=== PATIENT | male | born 1950 | race Caucasian/White ===

== ENCOUNTER → 2017-01-03 | Outpatient (CLI) | payer BC ==
[2017-01-03 13:20] LABS: BLOOD UREA NITROGEN 14 mg/dl (7-18); BUN/CREATININE RATIO 13.9 (10-20); CARBON DIOXIDE 28 mmol/L (21-32); CHLORIDE 107 mmol/L (98-107); GLUCOSE 90 mg/dl (70-99); SODIUM 143 mmol/L (136-145)
[2017-01-03 13:23] LABS: CHOLESTEROL 172 mg/dl (0-200); CHOLESTEROL/HDL RATIO 2.6; HDL CHOLESTEROL 67 mg/dl; LDL CHOLESTEROL CALCULATED 94 mg/dl; TRIGLYCERIDES 57 mg/dl (0-150); VERY LOW DENSITY LIPOPROT CALC 11 mg/dl
== END | disposition home or self-care (01) ==
LOC: C.LABPVFM 09:58
PROVIDERS: ATTEND Nurse Practitioner
DX: E78.5 Hyperlipidemia, unspecified (principal); R74.8 Abnormal levels of other serum enzymes

== ENCOUNTER → 2017-01-26 | Outpatient (CLI) | payer OTHER | END | disposition home or self-care (01) | LOC: C.LABPVFM 09:05 | PROVIDERS: ATTEND Nurse Practitioner | DX: Z11.59 Encounter for screening for other viral diseases (principal) ==

== ENCOUNTER → 2017-06-11 | Outpatient (CLI) | payer OTHER | END | disposition home or self-care (01) | LOC: C.LABPVFM 09:16 | PROVIDERS: ATTEND Urology | DX: R97.20 Elevated prostate specific antigen [PSA] (principal); N41.1 Chronic prostatitis ==

== ENCOUNTER → 2017-08-05 | Outpatient (CLI) | payer OTHER ==
[2017-08-05 12:41] LABS: BLOOD UREA NITROGEN 17 mg/dl (7-18); BUN/CREATININE RATIO 17.1 (10-20)
== END | disposition home or self-care (01) ==
LOC: C.LABPVFM 08:29
PROVIDERS: ATTEND Urology
DX: R97.20 Elevated prostate specific antigen [PSA] (principal)

== ENCOUNTER → 2017-08-12 | Outpatient (CLI) | payer OTHER ==
[~2017-08-12] MED LIST: GADAVIST IV PRN
--- NOTE | 2017-08-13 08:00 | DIAGNOSTIC IMAGING REPORT ---
PROSTATE MRI COMBO CLINICAL HISTORY: 67 year-old Male presenting with ELEVATED PSA. PSA 7.140 ng/mL. TECHNIQUE: Multisequence, multiplanar MR imaging of the prostate was performed before and after the intravenous administration of 7 cc of Gadavist. Additional postprocessing was performed on a separate Regal[employer] workstation by the radiologist for 3-D volumetric segmentation of the prostate and contouring of region(s) of interest (KAYLEEN) for targeting. COMPARISON: None. FINDINGS: Prostate: The prostate measures 5.5 x 5.5 x 5 cm (DynaCAD prostate boundary segmentation volume 73.07 mL). Marked benign prostatic hypertrophy is noted with numerous circumscribed central gland nodules which likely reflect BPH nodules. Precontrast T1 weighted imaging demonstrates no significant abnormality. Seminal vesicles normal. Suspicious lesion(s) described below: Lesion (DynaCAD KAYLEEN) 1: Note is made of a 1.3 x 0.5 x 0.9 cm wedge-shaped T2 hypointense focus within the right lateral mid and apical portion of the peripheral zone. This demonstrates progressive enhancement and demonstrates subtle hypointensity on the ADC map. No additional sites of decreased T2 signal are noted within the peripheral zone. There is no evidence for extracapsular extension. Bladder: Normal. Bowel: Visualized portion of the rectum normal. Peritoneum: No free fluid in the pelvis. Lymph nodes: No lymphadenopathy in the visualized portion of the pelvis. Vasculature: Iliac vessels patent. Osseous structures: Normal bone marrow signal intensity. IMPRESSION: 1. 1.3 x 0.5 x 0.9 cm wedge-shaped T2 hypointense focus within the right lateral mid and apical portion of the peripheral zone with progressive enhancement and subtle hypointensity on the ADC map. This is intermediate suspicion. The presence of clinically significant cancer is equivocal. This lesion has been segmented for targeted biopsy. 2. Markedly enlarged prostate with benign prostatic hyperplasia. Electronically signed by: Mendez Martin M.D. 08/13/2017 7:59 AM Dictated Date/Time: 08/12/2017 1:58 PM
== END | disposition home or self-care (01) ==
LOC: C.MRIBC 10:59
PROVIDERS: ATTEND Urology
DX: R97.20 Elevated prostate specific antigen [PSA] (principal); N42.9 Disorder of prostate, unspecified; N40.0 Benign prostatic hyperplasia without lower urinary tract symptoms

== ENCOUNTER → 2017-10-22 | Outpatient (CLI) | payer OTHER | END | disposition home or self-care (01) | LOC: C.PATHSPEC 17:34 | PROVIDERS: ATTEND Urology | DX: R97.20 Elevated prostate specific antigen [PSA] (principal) ==

== ENCOUNTER 2025-01-06 13:23 | Inpatient (IN) ==
--- NOTE | 2025-01-06 14:28 | XRay Report ---
XR chest 1V portable CLINICAL HISTORY: Dyspnea COMPARISON STUDY: 01/03/2025 FINDINGS: Heart size and pulmonary vasculature are normal. There are interval stranding opacities in the lung bases. There is an interval small area of patchy opacity right midlung. No pleural effusion or pneumothorax. IMPRESSION: Bilateral pneumonia. ACT 112: Negative or not required by law. Electronically signed by: Niranjan Ortega M.D. 01/06/2025 2:27 PM
[2025-01-06 14:36] LABS: Hematocrit (blood only) 37.6 % (42.0-52.0); Mean Corpuscular Hgb Conc 34.6 g/dL (32.0-36.0); Mean Corpuscular Volume 89.7 fL (80.0-100.0); Mean Platelet Volume 9.3 fL (9.4-12.4); Platelet Count 233 K/uL (130-400); RDW Coefficient of Variation 14.7 % (11.5-14.5); RDW Standard Deviation 48.3 fL (36.4-46.3); Red Blood Count 4.19 M/uL (4.70-6.10); White Blood Count 4.86 K/ul (4.8-10.8)
[2025-01-06] MEDS: methylPREDNISolone 125 MG/2 ML VIAL IV STA (14:36)
[2025-01-06] MEDS: ALBUT/IPRATROP 3MG/0.5MG NEB 3 ML VIAL NEB STA (14:36)
[2025-01-06] MEDS ORDERED: VANCOMYCIN CONSULT ACTIVE PRN (14:45)
[2025-01-06 14:46] LABS: Albumin Globulin Ratio 0.8 (0.9-2); Albumin Level 3.6 gm/dl (3.4-5.0); BUN Creatinine Ratio 20.4 (10-20); Bilirubin,Total 1.1 mg/dl (0.2-1.0); Calcium 9.7 mg/dl (8.6-10.3); Creatinine Clr Calc Pharmacy 63.7 ml/min; Globulin 4.3 gm/dl (2.5-4.0); Magnesium 2.1 mg/dl (1.7-2.4); Potassium 3.4 mmol/L (3.5-5.1); Total Protein 7.9 gm/dl (6.0-8.3)
[2025-01-06 14:59] LABS: Basophils # (auto) 0.06 K/uL (0.00-0.20); Basophils % (auto) 1.2 %; Eosinophils # (auto) 0.06 K/uL (0.00-0.50); Eosinophils % (auto) 1.2 %; Immature Granulocytes # (auto) 0.06 K/uL (0.01-0.20); Immature Granulocytes % (auto) 1.2 %; Lymphocytes # (auto) 0.95 K/uL (1.20-3.40); Lymphocytes % (auto) 19.5 %; Monocytes # (auto) 0.66 K/uL (0.11-0.59); Monocytes % (auto) 13.6 %; Neutrophils # (auto) 3.07 K/uL (1.40-6.50); Neutrophils % (auto) 63.3 %
--- NOTE | 2025-01-06 15:20 | Emergency Department Note ---
Impression & Plan Bilateral pneumonia, Influenza A ED Provider Note NAME: ATTILA FRAGA AGE: 74 SEX: Male INFORMANT: Patient ED PROVIDER(S): Noe Herrera MD CHIEF COMPLAINT: Shortness of breath and cough PLAN: Disposition: Admitted Outpatient prescription management: none Referral: None MEDICAL DECISION MAKING: Patient presented because of shortness of breath and cough. Had worsening flu symptoms and hypoxia. Patient had x-ray performed and had bilateral pneumonia. CBC and chemistry panels were unremarkable. Cardiac troponin negative. Due to his medical history and hypoxia CT imaging of the chest was ordered. Discussed antibiotic choices with ED pharmacist. Patient was treated with vancomycin, doxycycline, and Zosyn. Patient notes using amoxicillin and doxycycline as an outpatient without any problems. Patient underwent CT imaging. Pneumonia noted but no PE. Patient will need further evaluation and management in the hospital. I refer you to the EMR for further details. Consultation was made with Dr. Hernandez Graf of the [facility] service. Patient was evaluated in the ER for further management. Care/management discussed with: biostatistics manager, ED pharmacist Level of care consideration(s): After review of the information above and other included data, I feel the patient requires escalation of care to admission Triage Nursing notes: reviewed and agree them. Vital Signs: reviewed and remarkable for hypoxia Additional History obtained from: Family Chronic Medical/Social Conditions affecting care: Multiple myeloma Prior/ Outside/ External records reviewed: none Differential Diagnosis: Reactive airway disease, pneumonia, pneumothorax, COPD, CHF, infections, cardiac ischemia, pulmonary embolism, musculoskeletal, gastrointestinal, as well as other pathologies. Diagnostics, independently interpreted by me: ECG: Twelve-lead ECG reveals normal sinus rhythm at [address] elevation or depression. No PACs or PVCs. RSR prime pattern noted in V2. Cardiac Monitoring: Cardiac monitoring ordered by me: The patient was placed on continuous cardiac monitoring and observed. It revealed a normal sinus rhythm at 85 beats per minute without ectopy or evidence of dysrhythmia. Medical decision rules: none Imaging studies: Chest x-ray reveals bilateral pneumonia CT scan of the chest is negative for pulmonary emboli. Bilateral pneumonia noted. HPI: 74 year old Male arrives for evaluation of shortness of breath and cough. Patient notes about 1 week of symptoms. 3 days ago he was in Emergency Department and diagnosed with influenza A. He also notes fever and congestion. Patient was monitoring his blood oxygen level at home and was found to have saturations in the low 80s. He was seen by the primary clinic and referred to the ER due to hypoxia. Patient does have a history multiple myeloma and renal cancer. Pt denies LOC, headache, chills, diaphoresis, visual changes, neck pain, chest pain, nausea, vomiting, abdominal pain, back pain, melena, hematochezia, urinary symptoms, numbness, weakness, lymphadenopathy, rash, or other complaints.. PAST MEDICAL HISTORY: See Below, multiple myeloma PAST SURGICAL HISTORY: See Below, SOCIAL HISTORY: See Below, HOME MEDICATIONS: See Below ALLERGIES: See Below VITALS: See Below PHYSICAL EXAMINATION: GENERAL: Awake, alert, mildly ill-appearing, in no distress HENT: Normocephalic, atraumatic. Oropharynx unremarkable. EYES: Normal conjunctiva. Sclera non-icteric. NECK: Inspection normal. Non-tender. Supple. No nuchal rigidity. FROM. No masses. RESPIRATORY: Coarse rhonchi bilaterally. Worse on the right. No wheezes. No rales. Normal respiratory effort. CARDIAC: Normal rate. Normal rhythm. No murmurs. No rubs. Extremities warm and well perfused. Pulses equal. No JVD. GI: Soft, non-distended. No tenderness to palpation. No rebound or guarding. No masses. RECTAL: Deferred. MUSCULOSKELETAL: Atraumatic. Chest examination reveals no tenderness. The back is symmetrical on inspection without obvious abnormality. There is no CVA tenderness to palpation. No joint edema. LOWER EXTREMITIES: Calves are equal size bilaterally and non-tender. No edema. No discoloration. NEURO: Normal sensorium. No sensory or motor deficits noted. SKIN: No rash or jaundice noted. 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 followed by [facility], transplant 2020 Screening for diabetes mellitus Chronic prostatitis Abnormal gait (Acute) BPH with obstruction/lower urinary tract symptoms (Acute) Elevated PSA (Acute) Multiple thyroid nodules (Chronic) benign, stable Medical History Abnormal pathology report from prostate needle biopsy History of paranasal sinus congestion History of Lyme disease History of headache History of bronchitis Dyslipidemia Elevated liver enzymes History of cellulitis History of upper respiratory infection Surgical History History of vasectomy History of inguinal hernia repair Family History Father Stroke Brother Throat cancer Mother Pancreatic cancer Denies family history of Ovarian cancer Prostate cancer Myocardial infarction Breast cancer Colorectal cancer Social History (Updated 01/06/25 @ 11:37 by Sharla Chapman LPN) Smoking Status: Never smoker Second Hand Exposure: No; Do You Dip or Chew Tobacco: No; Hx Alcohol Use: Yes Alcohol type: beer and wine Alcohol Intake Frequency: 2-3 x/Week Hx Substance Use: No Preferred Language: Sammarinese Communication Ability: Effective Visual Impairment: Limited Hearing Ability: Normal Elementary Classroom Teacher Required: No Beliefs That Will Affect Care: Yarsanism marital status: Current Living Situation: Spouse current occupational status: retired How many Children do You have: 2 Feels Safe at Home: Yes Safety Concerns: Feels Safe At This Time Childhood Exposure to Second-Hand Smoke: Yes Diet: regular caffeine: Yes during the past year weight has: remained stable Dental Care, Regularly: Yes Physical Activity Frequency: 3-4 Times per Week Seatbelt Use: always Sunscreen Use: Yes Assistive Devices: Glasses Allergies Allergies Allergy/AdvReac Type Severity Reaction Status Date / Time No Known Allergies Allergy Unverified 01/06/25 20:37 Home Meds Home Medications Medication Instructions Recorded Confirmed cod liver oil 1 ea PO DAILY 08/25/19 01/06/25 cholecalciferol (vitamin D3) 50 50 mcg PO DAILY 09/25/22 01/06/25 mcg (2,000 unit) capsule aspirin 81 mg tablet,delayed 81 mg PO DAILY 10/11/24 01/06/25 release lenalidomide 10 mg capsule 10 mg PO DAILY 10/11/24 01/06/25 magnesium mal-pot cit-taur-B6 27 mg PO DAILY 01/03/25 01/06/25 mnrfjkytlnau-hvm-bbyit acid-vit 1 tab PO DAILY 01/03/25 01/06/25 K-lycop 400 mcg-20 mcg-370 mcg tablet (Men's 50 Plus Daily Formula) vitamin B12 0.5 mg-folic acid 1 mg 1 tab PO DAILY 01/03/25 01/06/25 tablet vitamin K2 40 mcg tablet 0 mcg PO DAILY 01/03/25 01/06/25 Previous Rx's Medication Instructions Recorded alfuzosin 10 mg tablet,extended 10 mg PO DAILY #90 tabs 02/22/24 release 24 hr dutasteride 0.5 mg capsule 0.5 mg PO DAILY #90 caps 04/07/24 hydrocortisone 2.5 % topical cream 1 applic ND DAILY PRN hemorrhoids 10/11/24 with perineal applicator #30 grams (Proctosol HC) Results & Data (ED) Vital Signs Vital Signs - 24 hr 01/06/25 13:41 01/06/25 14:39 01/06/25 14:41 Temperature 36.9 C Temperature Source Temporal Artery Scan Pulse Rate 84 85 Pulse Rate from SpO2 Sensor 84 Respiratory Rate 20 13 Blood Pressure 144/84 H Blood Pressure Mean 104 Pulse Oximetry 89 L 97 Oxygen Delivery Method Room Air Oxygen Flow Rate Sepsis Recent Fever Within 48 Hours Yes Sepsis New/Unexplained Change in Mental Status No Sepsis Action Taken by Nursing No Action Required 01/06/25 14:54 01/06/25 14:57 01/06/25 15:03 Temperature Temperature Source Pulse Rate 98 H 103 H Pulse Rate from SpO2 Sensor 98 H 105 H Respiratory Rate 30 H 20 Blood Pressure 150/87 H Blood Pressure Mean 117 Pulse Oximetry 93 93 Oxygen Delivery Method Nasal Cannula Nasal Cannula Oxygen Flow Rate 2 2 Sepsis Recent Fever Within 48 Hours Sepsis New/Unexplained Change in Mental Status Sepsis Action Taken by Nursing 01/06/25 15:30 01/06/25 16:03 01/06/25 16:45 Temperature Temperature Source Pulse Rate 98 H 94 H 89 Pulse Rate from SpO2 Sensor 98 H 93 H 88 Respiratory Rate 21 29 H Blood Pressure Blood Pressure Mean Pulse Oximetry 91 90 91 Oxygen Delivery Method Oxygen Flow Rate Sepsis Recent Fever Within 48 Hours Sepsis New/Unexplained Change in Mental Status Sepsis Action Taken by Nursing Laboratory Data 01/06/25 14:09 01/06/25 14:09 Lab Results 01/06/25 01/06/25 01/06/25 Range/Units 14:09 14:38 16:02 WBC 4.86 (4.8-10.8) K/ul RBC 4.19 L (4.70-6.10) M/uL Hgb 13.0 L (14.0-18.0) g/dl Hct 37.6 L (42.0-52.0) % MCV 89.7 (80.0-100.0) fL MCH 31.0 (25.0-34.0) pg MCHC 34.6 (32.0-36.0) g/dL RDW Std Deviation 48.3 H (36.4-46.3) fL RDW Coeff of Meri 14.7 H (11.5-14.5) % Plt Count 233 (130-400) K/uL MPV 9.3 L (9.4-12.4) fL Immature Gran % (Auto) 1.2 % Neut % (Auto) 63.3 % Lymph % (Auto) 19.5 % [place] % (Auto) 13.6 % Eos % (Auto) 1.2 % Baso % (Auto) 1.2 % Neut # (Auto) 3.07 (1.40-6.50) K/uL Lymph # (Auto) 0.95 L (1.20-3.40) K/uL [place] # (Auto) 0.66 H (0.11-0.59) K/uL Eos # (Auto) 0.06 (0.00-0.50) K/uL Baso # (Auto) 0.06 (0.00-0.20) K/uL Immature Gran # (Auto) 0.06 (0.01-0.20) K/uL Sodium 136 (136-145) mmol/L Potassium 3.4 L (3.5-5.1) mmol/L Chloride 100 (98-107) mmol/L Carbon Dioxide 27 (21-32) mmol/L Anion Gap 9 (3-11) BUN 20 (6-23) mg/dl Creatinine 0.98 (0.6-1.4) mg/dl Est Cr Clr Drug Dosing 63.7 ml/min eGFR 81.93 BUN/Creatinine Ratio 20.4 H (10-20) Glucose 109 H (70-99(Fasting)) mg/dl Calcium 9.7 (8.6-10.3) mg/dl Magnesium 2.1 (1.7-2.4) mg/dl Total Bilirubin 1.1 H (0.2-1.0) mg/dl AST 59 H (13-39) U/L ALT 63 H (7-52) U/L Alkaline Phosphatase 85 (34-104) U/L Troponin I High Sens 9.0 (0-20) pg/ml B-Natriuretic Peptide 44 (0-100) pg/ml Total Protein 7.9 (6.0-8.3) gm/dl Albumin 3.6 (3.4-5.0) gm/dl Globulin 4.3 H (2.5-4.0) gm/dl Albumin/Globulin Ratio 0.8 L (0.9-2) Nasal Screen MRSA (PCR) Negative (Negative) Administered Medications Guaifenesin (Guaifenesin 600 Mg Tabcr) 600 mg PO Q12 [facility] Stop: 02/05/25 20:59 Last Admin: 01/06/25 21:19 Dose: 600 mg Documented By: JOSE DAVID Heparin Sodium (Porcine) (Heparin Sod 5,000 Unit/0.5 Ml Vial) 5,000 units SQ Q12 DB Stop: 02/05/25 20:59 Last Admin: 01/06/25 21:19 Dose: 5,000 units Documented By: JOSE DAVID Sodium Chloride (Nss) 1,000 mls @ 125 mls/hr IV .Q8H [facility] Stop: 01/07/25 08:29 Last Admin: 01/06/25 16:32 Dose: 125 mls/hr Documented By: NYDIA Miscellaneous Information (Patient's Allergy Info Needs Entered) 1 each N/A Q30M DB Stop: 02/05/25 18:29 Last Admin: 01/06/25 21:14 Dose: 1 each Documented By: JOSE DAVID Discontinued Medications Albuterol (Albut/Ipratrop 3mg/0.5mg Neb 3 Ml Vial) 3 ml NEB NOW STA; Protocol Stop: 01/06/25 14:27 Last Admin: 01/06/25 14:36 Dose: 3 ml Documented By: JAK Vancomycin HCl 1,250 mg/ (Sodium Chloride) 525 mls @ 200 mls/hr IV NOW ONE Stop: 01/06/25 17:22 Last Infusion: 01/06/25 18:35 Dose: Infused Documented By: JOSE DAVID Admin: 02/28/25 15:57 Dose: 200 mls/hr Documented By: JAK Piperacillin Sod/Tazobactam Sod (Zosyn) 4.5 gm in 100 mls @ 200 mls/hr IV NOW ONE Stop: 01/06/25 15:29 Last Infusion: 01/06/25 16:29 Dose: Infused Documented By: Admin: 01/06/25 15:57 Dose: 200 mls/hr Documented By: JAK Doxycycline Hyclate 100 mg/ (Dextrose) 100 mls @ 50 mls/hr IV NOW ONE Stop: 01/06/25 16:59 Last Infusion: 01/06/25 18:35 Dose: Infused Documented By: Admin: 01/06/25 16:32 Dose: 50 mls/hr Documented By: NYDIA Ioversol (Optiray 320 125ml) 118 ml IV ONCE ONE Stop: 01/06/25 15:49 Last Admin: 01/06/25 15:50 Dose: 118 ml Documented By: SHELLY Methylprednisolone (Methylprednisolone 125 Mg/2 Ml Vial) 125 mg IV NOW STA Stop: 01/06/25 14:27 Last Admin: 01/06/25 14:36 Dose: 125 mg Documented By: JAK Oseltamivir Phosphate (Oseltamivir Phosphate 75 Mg Cap) 75 mg PO NOW STA Stop: 01/06/25 17:08 Last Admin: 01/06/25 17:48 Dose: 75 mg Documented By: NYDIA Potassium Chloride (Potassium Chloride Crtab 20 Meq Tabcr) 20 meq PO NOW STA Stop: 01/06/25 17:01 Last Admin: 01/06/25 17:48 Dose: 20 meq Documented By: NYDIA Imaging Data Radiologist's Impression: Chest X-Ray 01/06/25 13:46 XR chest 1V portable CLINICAL HISTORY: Dyspnea COMPARISON STUDY: 01/03/2025 FINDINGS: Heart size and pulmonary vasculature are normal. There are interval stranding opacities in the lung bases. There is an interval small area of patchy opacity right midlung. No pleural effusion or pneumothorax. IMPRESSION: Bilateral pneumonia. ACT 112: Negative or not required by law. Electronically signed by: Niranjan Ortega M.D. 01/06/2025 2:27 PM Chest CTA 01/06/25 14:55 EXAM: CT Angiography Chest With Intravenous Contrast INDICATION: Hypoxia. Influenza. TECHNIQUE: Axial computed tomographic angiography images of the chest with intravenous contrast. Sagittal and coronal reformatted images were created and reviewed. This CT exam was performed using one or more of the following dose reduction techniques: automated exposure control, adjustment of the mA and/or kV according to patient size, and/or use of iterative reconstruction technique. MIP reconstructed images were created and reviewed. CONTRAST: 118 ml of Optiray 320 was administered intravenously. COMPARISON: No relevant prior studies available. FINDINGS: Pulmonary arteries: Motion artifact limiting assessment of the lower lobe pulmonary arterial branches. No pulmonary embolus identified. Aorta: No acute change noted. No thoracic aortic aneurysm or dissection. Lungs and pleural spaces: Extensive airway thickening and bilateral lower, right upper and right middle lobe superimposed infiltrates present. 1.3 x 1.1 cm posterior right upper lobe partially pleural-based infiltrate present. No bronchiectasis or honeycombing. Heart: Mild cardiomegaly. No right heart strain. Small pericardial effusion noted. Thyroid: 6 mm right thyroid nodule. No further assessment required. Bones/joints: Degenerative changes noted throughout the spine. No acute osseous abnormality seen. Soft tissues: No abnormality noted. Lymph nodes: Enlarged 1.5 cm short axis dimension right hilar node. Smaller bilateral hilar nodes present. Collection of subcarinal nodes present measuring in total short axis dimension 1.5 cm. Liver: Low attenuation foci in the liver consistent with hepatic cysts. No follow-up is necessary. IMPRESSION: 1. Limited assessment without evident pulmonary embolus. 2. Bronchitis and multifocal pneumonia. 3. Mild cardiomegaly and small pericardial effusion. ACT 112: N/A Electronically signed by Yoselin Che 01-06-2025 4:10 PM Discharge Plan Visit Data Chief Complaint: Flu Like Symptoms Stated Complaint: FLU-A/RETURNING ED Provider: Noe Herrera Discharge Problem: Bilateral pneumonia, Influenza A Patient Disposition: Admitted As Inpatient Discharge Instructions Interventions: ED Discharge Assessment Last Done: 01/06/25 17:54
[2025-01-06 15:26] LABS: Adenovirus PCR Not Detected (NotDetected); Bordetella parapertussis PCR Not Detected (NotDetected); Bordetella pertussis PCR Not Detected (NotDetected); Chlamydia pneumoniae PCR Not Detected (NotDetected); Coronavirus 229E PCR Not Detected (NotDetected); Coronavirus CoV-2 (COVID19)PCR Not Detected (NotDetected); Coronavirus HKU1 PCR Not Detected (NotDetected); Coronavirus NL63 PCR Not Detected (NotDetected); Coronavirus OC43PCR Not Detected (NotDetected); Human Metapneumovirus PCR Not Detected (NotDetected); Influenza A (H3) PCR DETECTED (NotDetected); Influenza B PCR Not Detected (NotDetected); Mycoplasma pneumoniae PCR Not Detected (NotDetected); Parainfluenza Virus 1 PCR Not Detected (NotDetected); Parainfluenza Virus 2 PCR Not Detected (NotDetected); Parainfluenza Virus 3 PCR Not Detected (NotDetected); Parainfluenza Virus 4 PCR Not Detected (NotDetected); Respiratory Syncytial VirusPCR Not Detected (NotDetected); Rhinovirus/Enterovirus PCR Not Detected (NotDetected)
[2025-01-06] MEDS: OPTIRAY 320 125ml IV ONE (15:50)
[2025-01-06] MEDS: PIPERACILLIN/TAZOBACTAM 4.5 GM/100 ML BAG IV ONE (15:57)
[2025-01-06] MEDS: VANCOMYCIN HCL 1,250 MG in SODIUM CHLORIDE 0.9% 500 ML IV ONE (15:57)
--- NOTE | 2025-01-06 16:10 | CT Scan Report ---
EXAM: CT Angiography Chest With Intravenous Contrast INDICATION: Hypoxia. Influenza. TECHNIQUE: Axial computed tomographic angiography images of the chest with intravenous contrast. Sagittal and coronal reformatted images were created and reviewed. This CT exam was performed using one or more of the following dose reduction techniques: automated exposure control, adjustment of the mA and/or kV according to patient size, and/or use of iterative reconstruction technique. MIP reconstructed images were created and reviewed. CONTRAST: 118 ml of Optiray 320 was administered intravenously. COMPARISON: No relevant prior studies available. FINDINGS: Pulmonary arteries: Motion artifact limiting assessment of the lower lobe pulmonary arterial branches. No pulmonary embolus identified. Aorta: No acute change noted. No thoracic aortic aneurysm or dissection. Lungs and pleural spaces: Extensive airway thickening and bilateral lower, right upper and right middle lobe superimposed infiltrates present. 1.3 x 1.1 cm posterior right upper lobe partially pleural-based infiltrate present. No bronchiectasis or honeycombing. Heart: Mild cardiomegaly. No right heart strain. Small pericardial effusion noted. Thyroid: 6 mm right thyroid nodule. No further assessment required. Bones/joints: Degenerative changes noted throughout the spine. No acute osseous abnormality seen. Soft tissues: No abnormality noted. Lymph nodes: Enlarged 1.5 cm short axis dimension right hilar node. Smaller bilateral hilar nodes present. Collection of subcarinal nodes present measuring in total short axis dimension 1.5 cm. Liver: Low attenuation foci in the liver consistent with hepatic cysts. No follow-up is necessary. IMPRESSION: 1. Limited assessment without evident pulmonary embolus. 2. Bronchitis and multifocal pneumonia. 3. Mild cardiomegaly and small pericardial effusion. ACT 112: N/A Electronically signed by Yoselin Che 01-06-2025 4:10 PM
--- NOTE | 2025-01-06 16:15 | History & Physical Report ---
Date of Service January 06, 2025 Assessment & Plan (1) Multifocal pneumonia: (2) Influenza A: (3) Immunosuppressed status: Plan Nacho is a pleasant 74-year-old male with PMH of renal cell, and metastatic multiple myeloma to bone. He presented on 01/06 for ongoing SOB/dyspnea and flu symptoms. Patient initially developed symptoms on Saturday 12/30. He then presented to the emergency department on Wednesday 01/03 and was diagnosed with influenza A; he was given an inhaler for his symptoms. During his PCP follow-up on 01/06, he was found to be hypoxic and sent to the emergency department. Patient is not on supplemental oxygen at baseline, but reports his home pulse ox today was reading 79 to 84%. #Multifocal pneumonia Chest CTA did not note pulmonary embolism, but did note multifocal pneumonia bilaterally Blood cultures drawn Vancomycin and Zosyn x 1 in the ED as patient is immunocompromised However, given MRSA swab (-) will discontinue additional vancomycin Zosyn 4.5 g IV q8h If clinical improvement, would recommend switching to a cephalosporin in 24 hours Note: Patient does have a listed cephalosporin allergy (rash), however this was in the setting of disseminated Lyme and may have been erythema migrans Doxycycline 100 mg IV BID DuoNeb, guaifenesin, and acetaminophen PRN #Immunocompromise status/multiple myeloma Patient is currently on lenalidomide 10 mg daily for MM; will hold in the setting of acute infection Close monitoring of renal function #Influenza A Influenza A (+) on arrival Droplet isolation precautions Supportive care Tamiflu 75 mg p.o. BID given comorbidities, new onset hypoxia, and high risk for progression #Acute hypoxic respiratory failure SpO2 88% on RA on arrival Patient is not normally on oxygen at baseline Titrate supplemental oxygen as needed to maintain SpO2 >94% #Anemia Mild; noted; Hgb 13.0 on arrival Clinically, patient denies hemoptysis, melena, or blood in the urine or stool No signs of active bleeding on physical exam Suspect secondary to multiple myeloma Continue to monitor Disposition: Admit to PCU telemetry Full code Regular diet VTE PPx: High risk due to chemotherapy; heparin 5000 units SQ q12h History of Present Illness Chief Complaint: Flulike symptoms Primary Care Provider: RENZO Buenrostro Nacho is a pleasant 74-year-old male with PMH of renal cell, and metastatic multiple myeloma to bone. He presented on 01/06 for ongoing SOB/dyspnea and flu symptoms. Patient initially developed symptoms on Saturday 12/30. He then presented to the emergency department on Wednesday 01/03 and was diagnosed with influenza A; he was given an inhaler for his symptoms. During his PCP follow-up on 01/06, he was found to be hypoxic and sent to the emergency department. Patient is not on supplemental oxygen at baseline, but reports his home pulse ox today was reading 79 to 84%. His symptoms have not subsided in the past week, and include things like low-grade fever, SOB with exertion, and productive cough (green sputum production). Patient currently takes 10 mg p.o. daily of lenalidomide for history of multiple myeloma, but reports that he did not take it this morning. Follows with [facility] (Dr. Alegria) for oncology. The only medication that he took this morning was aspirin 81 mg. No recent change in medications. He denies any blood in his cough or pleuritic chest pain, but does note that taking deep breaths causes him to go into coughing fits. Patient denies smoking, tobacco use, recent alcohol use. In regard to his listed cephalosporin allergy, he reports he had a mild rash once; no prior history of anaphylaxis or throat closure with antibiotic use. Patient is hypertensive at 150/87 and tachycardic at 103 bpm at time of admission; SpO2 93% on 2L NC. ED course: Vancomycin 1250 mg IV Doxycycline 100 mg IV Albuterol 3 mL neb Solu-Medrol 125 mg IV Zosyn 4.5 g IV ROS: Patient endorses low-grade fever, chills, feeling off balance, headache, coughing spells, productive cough (green), COYLE, or diarrhea. Patient denies dizziness, lightheadedness, night-sweats, falls, chest pain, chest palpitations, pleuritic CP, hemoptysis, SOB at rest, abdominal pain, N/V, melena, burning with urination, or redness/swelling in the legs. Home Medications Medication Instructions Recorded Confirmed Type cod liver oil 1 ea PO DAILY 08/25/19 01/06/25 History cholecalciferol (vitamin D3) 50 50 mcg PO DAILY 09/25/22 01/06/25 History mcg (2,000 unit) capsule alfuzosin 10 mg tablet,extended 10 mg PO DAILY #90 tabs 02/22/24 01/06/25 Rx release 24 hr dutasteride 0.5 mg capsule 0.5 mg PO DAILY #90 caps 04/07/24 01/06/25 Rx aspirin 81 mg tablet,delayed 81 mg PO DAILY 10/11/24 01/06/25 History release hydrocortisone 2.5 % topical cream 1 applic ND DAILY PRN hemorrhoids 10/11/24 01/06/25 Rx with perineal applicator #30 grams (Proctosol HC) lenalidomide 10 mg capsule 10 mg PO DAILY 10/11/24 01/06/25 History magnesium mal-pot cit-taur-B6 27 mg PO DAILY 01/03/25 01/06/25 History mznyrdmtruhf-scd-ynnaa acid-vit 1 tab PO DAILY 01/03/25 01/06/25 History K-lycop 400 mcg-20 mcg-370 mcg tablet (Men's 50 Plus Daily Formula) vitamin B12 0.5 mg-folic acid 1 mg 1 tab PO DAILY 01/03/25 01/06/25 History tablet vitamin K2 40 mcg tablet 0 mcg PO DAILY 01/03/25 01/06/25 History Past Med/Surg History Problem List (Updated 01/06/25 @ 16:47 by Iglesia Hernandez PA-C) Immunosuppressed status Multifocal pneumonia Bilateral pneumonia (Acute) Lack of appetite (Acute) Cough (Acute) Chest congestion (Acute) Nasal congestion (Acute) Fever (Acute) Influenza A (Acute) Acute pain in scrotum Seborrheic keratoses Incomplete emptying of bladder Benign essential tremor Renal cell adenoma of left kidney Metastatic multiple myeloma to bone followed by [facility], transplant 2020 Screening for diabetes mellitus Chronic prostatitis Abnormal gait (Acute) BPH with obstruction/lower urinary tract symptoms (Acute) Elevated PSA (Acute) Multiple thyroid nodules (Chronic) benign, stable Medical History Abnormal pathology report from prostate needle biopsy History of paranasal sinus congestion History of Lyme disease History of headache History of bronchitis Dyslipidemia Elevated liver enzymes History of cellulitis History of upper respiratory infection Surgical History History of vasectomy History of inguinal hernia repair Family History Father Stroke Brother Throat cancer Mother Pancreatic cancer Denies family history of Ovarian cancer Prostate cancer Myocardial infarction Breast cancer Colorectal cancer Social History (Updated 01/06/25 @ 11:37 by Sharla Chapman LPN) Smoking Status: Never smoker Second Hand Exposure: No; Do You Dip or Chew Tobacco: No; Hx Alcohol Use: Yes Alcohol type: beer and wine Alcohol Intake Frequency: 2-3 x/Week Hx Substance Use: No Preferred Language: Gibraltarian Communication Ability: Effective Visual Impairment: Limited Hearing Ability: Normal Health Care Legal Assistant Required: No Beliefs That Will Affect Care: None marital status: Current Living Situation: Spouse current occupational status: retired How many Children do You have: 2 Feels Safe at Home: Yes Childhood Exposure to Second-Hand Smoke: Yes Diet: regular caffeine: Yes during the past year weight has: remained stable Dental Care, Regularly: Yes Physical Activity Frequency: 3-4 Times per Week Seatbelt Use: always Sunscreen Use: Yes Assistive Devices: Glasses Review of Systems Review of Systems: See HPI above Physical Exam Physical Exam: General: no acute distress; pleasant affect; anxious; at bedside; non-toxic appearing; cooperative; SpO2 92% on 2L NC HEENT: normocephalic, atraumatic; no scleral icterus; PERRLA; vision and hearing grossly intact Neck: supple; trachea midline Skin: warm, dry without signs of tenting; no cyanosis; no rashes, bruising, lesions, or erythema noted CV: chest wall NTP; RRR; S1/S2 normal; no murmurs/rubs/gallops; pulses intact and symmetric at radial, DP, and PT Lungs: no acute respiratory distress; symmetrical chest wall expansion; bibasilar crackles auscultated in lower lung chowdary bilaterally ABD: Soft, NTP; BS present; no rebound/guarding; no distention MSK: Tremors in the upper extremities bilaterally (R>L); no edema noted in the LEs b/l, nonerythematous Neuro: A&Ox3; normal mood and affect; fluent speech; no focal deficits; sensation grossly intact in the LEs b/l Results & Data Results & Data Vital Signs (Past 12 Hours) Vital Signs Temp Pulse Resp BP Pulse Ox O2 Del Method O2 Flow Rate 01/06/25 15:03 103 H 20 93 Nasal Cannula 2 01/06/25 14:57 150/87 H 01/06/25 14:54 98 H 30 H 93 Nasal Cannula 2 01/06/25 14:41 85 01/06/25 14:39 84 13 97 01/06/25 13:41 36.9 C 20 144/84 H 89 L Room Air Laboratory Results Abnormal lab results 01/06/25 Range/Units 14:09 RBC 4.19 L (4.70-6.10) M/uL Hgb 13.0 L (14.0-18.0) g/dl Hct 37.6 L (42.0-52.0) % RDW Std Deviation 48.3 H (36.4-46.3) fL RDW Coeff of Meri 14.7 H (11.5-14.5) % MPV 9.3 L (9.4-12.4) fL Lymph # (Auto) 0.95 L (1.20-3.40) K/uL Hayes # (Auto) 0.66 H (0.11-0.59) K/uL Potassium 3.4 L (3.5-5.1) mmol/L BUN/Creatinine Ratio 20.4 H (10-20) Glucose 109 H (70-99(Fasting)) mg/dl Total Bilirubin 1.1 H (0.2-1.0) mg/dl AST 59 H (13-39) U/L ALT 63 H (7-52) U/L Globulin 4.3 H (2.5-4.0) gm/dl Albumin/Globulin Ratio 0.8 L (0.9-2) Diagnostic Findings Chest X-Ray 01/06/25 13:46 XR chest 1V portable CLINICAL HISTORY: Dyspnea COMPARISON STUDY: 01/03/2025 FINDINGS: Heart size and pulmonary vasculature are normal. There are interval stranding opacities in the lung bases. There is an interval small area of patchy opacity right midlung. No pleural effusion or pneumothorax. IMPRESSION: Bilateral pneumonia. ACT 112: Negative or not required by law. Electronically signed by: Niranjan Ortega M.D. 01/06/2025 2:27 PM Chest CTA 01/06/25 14:55 EXAM: CT Angiography Chest With Intravenous Contrast INDICATION: Hypoxia. Influenza. TECHNIQUE: Axial computed tomographic angiography images of the chest with intravenous contrast. Sagittal and coronal reformatted images were created and reviewed. This CT exam was performed using one or more of the following dose reduction techniques: automated exposure control, adjustment of the mA and/or kV according to patient size, and/or use of iterative reconstruction technique. MIP reconstructed images were created and reviewed. CONTRAST: 118 ml of Optiray 320 was administered intravenously. COMPARISON: No relevant prior studies available. FINDINGS: Pulmonary arteries: Motion artifact limiting assessment of the lower lobe pulmonary arterial branches. No pulmonary embolus identified. Aorta: No acute change noted. No thoracic aortic aneurysm or dissection. Lungs and pleural spaces: Extensive airway thickening and bilateral lower, right upper and right middle lobe superimposed infiltrates present. 1.3 x 1.1 cm posterior right upper lobe partially pleural-based infiltrate present. No bronchiectasis or honeycombing. Heart: Mild cardiomegaly. No right heart strain. Small pericardial effusion noted. Thyroid: 6 mm right thyroid nodule. No further assessment required. Bones/joints: Degenerative changes noted throughout the spine. No acute osseous abnormality seen. Soft tissues: No abnormality noted. Lymph nodes: Enlarged 1.5 cm short axis dimension right hilar node. Smaller bilateral hilar nodes present. Collection of subcarinal nodes present measuring in total short axis dimension 1.5 cm. Liver: Low attenuation foci in the liver consistent with hepatic cysts. No follow-up is necessary. IMPRESSION: 1. Limited assessment without evident pulmonary embolus. 2. Bronchitis and multifocal pneumonia. 3. Mild cardiomegaly and small pericardial effusion. ACT 112: N/A Electronically signed by Yoselin Che 01-06-2025 4:10 PM ECG Additional Comments: ECG revealed NSR at 90 bpm; QTc 423 Code Status & VTE Plan Code Status Full code VTE Prophylaxis Plan VTE Prophylaxis will be ordered: Yes Supervising Physician Co-Signing Physician Notes Patient seen and examined, chart reviewed, case discussed with Iglesia Hernandez PA-C and I agree with the assessment and plan as above except as otherwise noted Labs and images reviewed 74-year-old male with past medical history of renal cell adenoma, multiple myeloma with bony lesions, BPH who presented to the ER with hypoxia and recent diagnosis with flu A. Patient is hypoxic 79-84% at home and was hypoxic requiring 2 L of nasal cannula to maintain 90% oxygenation in the ER. CTA of the chest was performed and shows bilateral multifocal pneumonia, no evidence of PE. Patient is treated for broad coverage of suspected superimposed pneumonia on top of flu A. He does warrant expanded coverage due to underlying immune compromise due to malignancy and treatment. Lenalidomide is held on admission. Tamiflu is indicated as he is flu positive and requires admission, this is ordered and adjusted for renal function. He initially reported a keflex allergy. On review reports he had an annual rash while on keflex which persisted until starting doxy and was diagnosed with lyme. On review of photos patient had in his phone has a rash classic for primary erythema migrans rash followed by multiple smaller areas consistent with dissemenated lyme. He tolerates penicillin well with no allergy. Discussed with patient feel that his risk of harm from avoiding cephalosporins and pursuing potentially less optimal treatment choices in the future is higher than his risk of allergy. Will remove cephalexin from his allergy list. Given his clinical level of illness on exam do feel that 24 hours of Zosyn is warranted, if patient is clinically improving 01/06 then would switch to Rocephin/doxycycline at that time with a potential oral target of cefpodoxime/doxycycline. MRSA nares negative and vancomycin is not required. Agree with above PG Care Time/CCT Total # of Minutes Spent Total Time Spent with Patient: Total time spent is greater than 50% in coordination of care (as documented) at patient's floor/unit and/or counseling patient: Coding [place] [address] INT INP/OBS CARE 3/75MIN Patient Type Established History Comprehensive Exam Comprehensive Medical Decision Making High Complexity Diagnoses Multifocal pneumonia J18.9 Influenza A J10.1 Immunosuppressed status D84.9
[2025-01-06] MEDS: DOXYCYCLINE HYCLATE 100 MG in D5W MINI-B (NOW) IV ONE (16:32)
[2025-01-06] MEDS: SODIUM CHLORIDE 0.9% 1,000 ML IV SCH (16:32)
[2025-01-06] MEDS: OSELTAMIVIR PHOSPHATE 75 MG CAP PO STA (17:48)
[2025-01-06] MEDS: POTASSIUM CHLORIDE CRTAB 20 MEQ TABCR PO STA (17:48)
[2025-01-06] MEDS ORDERED: ACETAMINOPHEN 325 MG TAB PO PRN (18:26)
[2025-01-06] MEDS: Patient's ALLERGY Info needs ENTERED SCH (21:14)
[2025-01-06] MEDS: guaiFENesin 600 MG TABCR PO SCH (21:19)
[2025-01-06] MEDS: HEPARIN SOD 5,000 UNIT/0.5 ML VIAL SQ SCH (21:19)
--- NOTE | 2025-01-06 22:34 | Electrocardiogram Report ---
Test Reason : Blood Pressure : */* mmHG Vent. Rate : 90 BPM Atrial Rate : 90 BPM P-R Int : 160 ms QRS Dur : 90 ms QT Int : 346 ms P-R-T Axes : 56 50 47 degrees QTcB Int : 423 ms Normal sinus rhythm Normal ECG No previous ECGs available Confirmed by Mario Zurita ([id number]) on 01/06/2025 10:33:47 PM Referred By: REFERRED SELF Confirmed By: Mario Zurita
[2025-01-06] MEDS: PIPERACILLIN/TAZOBACTAM 4.5 GM/100 ML BAG IV SCH (23:12)
[2025-01-07 06:33] LABS: Hematocrit (blood only) 30.9 % (42.0-52.0); Hemoglobin 10.8 g/dl (14.0-18.0); Mean Corpuscular Hemoglobin 31.1 pg (25.0-34.0); Mean Platelet Volume 9.3 fL (9.4-12.4); Platelet Count 217 K/uL (130-400); RDW Coefficient of Variation 14.6 % (11.5-14.5); RDW Standard Deviation 47.8 fL (36.4-46.3); Red Blood Count 3.47 M/uL (4.70-6.10); White Blood Count 3.93 K/ul (4.8-10.8)
[2025-01-07 06:42] LABS: BUN Creatinine Ratio 23.8 (10-20); Creatinine Clr Calc Pharmacy 76.1 ml/min; Potassium 3.6 mmol/L (3.5-5.1)
[2025-01-07 07:04] LABS: Basophils # (auto) 0.01 K/uL (0.00-0.20); Basophils % (auto) 0.3 %; Echinocytes 1+; Immature Granulocytes # (auto) 0.04 K/uL (0.01-0.20); Lymphocytes # (auto) 0.65 K/uL (1.20-3.40); Lymphocytes % (auto) 16.5 %; Monocytes # (auto) 0.28 K/uL (0.11-0.59); Monocytes % (auto) 7.1 %; Neutrophils # (auto) 2.95 K/uL (1.40-6.50); Neutrophils % (auto) 75.1 %; Polychromasia 1+
[2025-01-07] MEDS: OSELTAMIVIR PHOSPHATE 75 MG CAP PO SCH (08:33)
[2025-01-07] MEDS: FINASTERIDE 5 MG TAB PO SCH (08:33)
[2025-01-07] MEDS: ASPIRIN 81 MG ECTAB PO SCH (08:34)
[2025-01-07] MEDS: TAMSULOSIN HCL 0.4 MG CAP PO SCH (08:34)
[2025-01-07] MEDS: DOXYCYCLINE HYCLATE 100 MG CAP PO SCH (08:34)
--- NOTE | 2025-01-07 11:30 | Hospitalist Progress Note ---
Date of Service January 07, 2025 Assessment & Plan (1) Multifocal pneumonia: (2) Influenza A: (3) Immunosuppressed status: Plan Nacho is a pleasant 74-year-old male with PMH of renal cell, and metastatic multiple myeloma to bone. He presented on 01/06 for ongoing SOB/dyspnea and flu symptoms. Patient initially developed symptoms on Saturday 12/30. He then presented to the emergency department on Wednesday 01/03 and was diagnosed with influenza A; he was given an inhaler for his symptoms. During his PCP follow-up on 01/06, he was found to be hypoxic and sent to the emergency department. Patient is not on supplemental oxygen at baseline, but reports his home pulse ox today was reading 79 to 84%. #Multifocal pneumonia Chest CTA did not note pulmonary embolism, but did note multifocal pneumonia bilaterally Most likley due to Influenza Procalcitonin did not suggest bacterial infection However, on account of immunosuppression, will continue Zosyn and Doxy for now, while we await cultures #Immunocompromise status/multiple myeloma Patient is currently on lenalidomide 10 mg daily for MM; will hold in the setting of acute infection Close monitoring of renal function #Influenza A Influenza A (+) on arrival Droplet isolation precautions Supportive care Tamiflu 75 mg p.o. BID given comorbidities, new onset hypoxia, and high risk for progression #Acute hypoxic respiratory failure SpO2 88% on RA on arrival Patient is not normally on oxygen at baseline Titrate supplemental oxygen as needed to maintain SpO2 >94% #Anemia Mild; noted; Hgb 13.0 on arrival Clinically, patient denies hemoptysis, melena, or blood in the urine or stool No signs of active bleeding on physical exam Suspect secondary to multiple myeloma Continue to monitor Disposition: Admit to PCU telemetry Full code Regular diet VTE PPx: High risk due to chemotherapy; heparin 5000 units SQ q12h Admission and Anticipated Discharge Date Admission Date: January 06, 2025 Subjective patient seen and examined, says he feels a lot better, no longer as congested, his cough is also better Review of Systems Review of Systems: All systems reviewed are negative, apart from the ones contained in the history. Physical Exam Physical Exam: The patient is awake, alert and oriented 3, well developed and well nourished, normocephalic and atraumatic, lying in bed and in no acute distress. HEENT--PERRL, EOMI, mucous membranes and oropharynx mildly dry Neck--supple. No JVD. No bruits. Thyroid normal, trachea midline, no adenopathy. Heart--normal S1 and S2. No murmurs, rubs or gallops. Lungs--clear bilaterally, no respiratory distress, no accessory muscle use. Abdomen--normal bowel sounds and soft. Extremities--no cyanosis or clubbing. No edema. Dermatologic--normal skin turgor, normal color, no abnormal lymph nodes, no rash. Neurologic--cranial nerves II through XII grossly intact. Rheumatologic--normal range of motion. Psychiatric--normal affect. Results & Data Results & Data Vital Signs (Past 12 Hours) Vital Signs Temp Pulse Pulse Resp BP Pulse Ox O2 Del Method 01/07/25 08:22 97.7 F 82 20 114/69 91 Nasal Cannula 01/07/25 07:30 Nasal Cannula 01/07/25 07:16 59 L 01/07/25 04:17 97.9 F 87 18 114/65 93 Nasal Cannula O2 Flow Rate 01/07/25 08:22 2 01/07/25 07:30 2 01/07/25 07:16 01/07/25 04:17 2 PG Care Time/CCT Total # of Minutes Spent Total Time Spent with Patient: Total time spent is greater than 50% in coordination of care (as documented) at patient's floor/unit and/or counseling patient: Coding Level of Care Code 16691 SUB INP/OBS CARE 2/35MIN Diagnoses Multifocal pneumonia J18.9 Influenza A J10.1 Immunosuppressed status D84.9 Time Spent (min) 35
[2025-01-07 11:56] LABS: Appearance Urine Clear (Clear); Bacteria Urine Automated None Seen (None Seen); Bilirubin Urine Negative (Negative); Blood Urine 1+ (Negative); Cast Urine Automated 0-2 /lpf (0-2); Color Urine Yellow; Epithelial Cell Urine Auto 0-2 /hpf (0-2); Glucose Urine UA Negative (Negative); Ketones Urine Trace (Negative); Leukocyte Esterase Urine Negative (Negative); Nitrite Urine Negative (Negative); Protein Urine 2+ (Negative); RBC Urine Automated 0-2 /hpf (0-2); Specific Gravity Urine 1.039 (1.000-1.030); Urobilinogen Urine Negative (Negative); WBC Urine Automated 0-5 /hpf (0-5)
[2025-01-08 08:26] LABS: Hematocrit (blood only) 33.7 % (42.0-52.0); Hemoglobin 11.3 g/dl (14.0-18.0); Mean Corpuscular Hemoglobin 29.9 pg (25.0-34.0); Mean Corpuscular Hgb Conc 33.5 g/dL (32.0-36.0); Mean Corpuscular Volume 89.2 fL (80.0-100.0); Mean Platelet Volume 9.5 fL (9.4-12.4); Platelet Count 276 K/uL (130-400); RDW Coefficient of Variation 14.8 % (11.5-14.5); Red Blood Count 3.78 M/uL (4.70-6.10); White Blood Count 6.42 K/ul (4.8-10.8)
--- NOTE | 2025-01-08 10:08 | Hospitalist Progress Note ---
Date of Service January 08, 2025 Assessment & Plan (1) Multifocal pneumonia: (2) Influenza A: (3) Immunosuppressed status: Plan Nacho is a pleasant 74-year-old male with PMH of renal cell, and metastatic multiple myeloma to bone. He presented on 01/06 for ongoing SOB/dyspnea and flu symptoms. Patient initially developed symptoms on Saturday 12/30. He then presented to the emergency department on Wednesday 01/03 and was diagnosed with influenza A; he was given an inhaler for his symptoms. During his PCP follow-up on 01/06, he was found to be hypoxic and sent to the emergency department. Patient is not on supplemental oxygen at baseline, but reports his home pulse ox today was reading 79 to 84%. #Multifocal pneumonia Chest CTA did not note pulmonary embolism, but did note multifocal pneumonia bilaterally Most likley due to Influenza Procalcitonin did not suggest bacterial infection However, on account of immunosuppression, will continue Zosyn and Doxy for now, while we await cultures clinically better today #Immunocompromise status/multiple myeloma Patient is currently on lenalidomide 10 mg daily for MM; will hold in the setting of acute infection Close monitoring of renal function #Influenza A Influenza A (+) on arrival Droplet isolation precautions Supportive care Tamiflu 75 mg p.o. BID given comorbidities, new onset hypoxia, and high risk for progression #Acute hypoxic respiratory failure SpO2 88% on RA on arrival Patient is not normally on oxygen at baseline Titrate supplemental oxygen as needed to maintain SpO2 >94% #Anemia Mild; noted; Hgb 13.0 on arrival Clinically, patient denies hemoptysis, melena, or blood in the urine or stool No signs of active bleeding on physical exam Suspect secondary to multiple myeloma Continue to monitor Disposition: Hopefully d/c home in the next 24-48 hrs Full code Regular diet VTE PPx: High risk due to chemotherapy; heparin 5000 units SQ q12h Admission and Anticipated Discharge Date Admission Date: January 06, 2025 Subjective patient seen and examined, says he feels a lot better, no longer as congested, his cough is also better, but still some SOB Review of Systems Review of Systems: All systems reviewed are negative, apart from the ones contained in the history. Physical Exam Physical Exam: The patient is awake, alert and oriented 3, well developed and well nourished, normocephalic and atraumatic, lying in bed and in no acute distress. HEENT--PERRL, EOMI, mucous membranes and oropharynx mildly dry Neck--supple. No JVD. No bruits. Thyroid normal, trachea midline, no adenopathy. Heart--normal S1 and S2. No murmurs, rubs or gallops. Lungs--clear bilaterally, no respiratory distress, no accessory muscle use. Abdomen--normal bowel sounds and soft. Extremities--no cyanosis or clubbing. No edema. Dermatologic--normal skin turgor, normal color, no abnormal lymph nodes, no rash. Neurologic--cranial nerves II through XII grossly intact. Rheumatologic--normal range of motion. Psychiatric--normal affect. Results & Data Results & Data Vital Signs (Past 12 Hours) Vital Signs Temp Pulse Pulse Resp BP BP Pulse Ox 01/08/25 08:17 98.1 F 90 18 125/70 91 01/08/25 07:15 01/08/25 06:59 65 01/08/25 03:51 98.1 F 73 29 H 124/75 93 01/07/25 23:52 57 L 01/07/25 23:49 61 01/07/25 23:06 98.1 F 65 16 120/71 92 O2 Del Method O2 Flow Rate 01/08/25 08:17 Nasal Cannula 2.0 01/08/25 07:15 Nasal Cannula 2 01/08/25 06:59 01/08/25 03:51 Nasal Cannula 3 01/07/25 23:52 01/07/25 23:49 01/07/25 23:06 Nasal Cannula 2.5 PG Care Time/CCT Total # of Minutes Spent Total Time Spent with Patient: Total time spent is greater than 50% in coordination of care (as documented) at patient's floor/unit and/or counseling patient: Coding Level of Care Code 60520 SUB INP/OBS CARE 2/35MIN Diagnoses Multifocal pneumonia J18.9 Influenza A J10.1 Immunosuppressed status D84.9 Time Spent (min) 35
[2025-01-08] MEDS ORDERED: POLYETHYLENE (MIRALAX) 17 GM PACK PO PRN (15:45)
[2025-01-08] MEDS: ONDANSETRON INJ 2 MG/ML 2 ML VIAL IV PRN (22:02)
[2025-01-09] MEDS: ALBUT/IPRATROP 3MG/0.5MG NEB 3 ML VIAL NEB PRN (05:04)
[2025-01-09] MEDS ORDERED: methylPREDNISolone 125 MG/2 ML VIAL IV STA (06:21)
[2025-01-09] MEDS: methylPREDNISolone 60 MG in SYRINGE 0 ML IV STA (06:34)
[2025-01-09] MEDS ORDERED: methylPREDNISolone 10 mg/mL (For Ped Dose < 7mg) IV SCH (09:15)
[2025-01-09] MEDS: SODIUM CHLOR 7% 4 ML NEB NEB ONE (09:44)
[2025-01-09] MEDS: guaiFENesin 600 MG TABCR PO SCH (10:01)
--- NOTE | 2025-01-09 10:47 | XRay Report ---
XR chest 2V PA/lateral CLINICAL HISTORY: viral PNA, resp failure COMPARISON STUDY: 01/06/2025 FINDINGS: Heart size and pulmonary vasculature are normal. There is residual stranding in the lung ba ses and small area of patchy opacity right midlung, mildly improved. No lobar consolidation, pleural effusion, or pneumothorax. IMPRESSION: Persistent pneumonia, mildly improved. ACT 112: Negative or not required by law. Electronically signed by: Niranjan Ortega M.D. 01/09/2025 10:46 AM
[2025-01-09] MEDS: methylPREDNISolone 60 MG in SYRINGE 0 ML IV SCH (12:22)
--- NOTE | 2025-01-09 12:37 | Hospitalist Progress Note ---
Date of Service January 09, 2025 Assessment & Plan (1) Multifocal pneumonia: Plan: Suspect bilateral viral pneumonia. Parenteral steroid therapy has been uptitrated. Supportive care. Continue intravenous antibiotics for now (2) Influenza A: Plan: Continue Tamiflu. Probable cause of suspected viral pneumonia. Supportive care (3) Acute respiratory failure with hypoxia: Plan: Supplemental oxygen per nasal cannula to maintain saturation greater than 90%. Wean off as tolerated. (4) Immunosuppressed status: Plan: Due to lenalidomide therapy. He has a history of renal cell carcinoma and multiple myeloma. Plan Anticipate eventual discharge to home, with or without oxygen if needed. Hopefully within the next day or 2. Admission and Anticipated Discharge Date Admission Date: January 06, 2025 Subjective Alert and oriented. No distress. He continues to require oxygen per nasal cannula. I suspect he has an underlying viral pneumonia associated with the influenza A. Parenteral steroid therapy has been uptitrated. PA and left lateral chest x-ray obtained today, January 09, looks better. He does occasionally produce some purulent sputum. Culture ordered. Hopefully he can go home tomorrow, January 10, with or without supplemental oxygen. Review of Systems 2 Review of Systems: Constitutionalno fever or chills ENTno blurred vision, no double vision, no epistaxis, no sore throat Respiratoryoccasionally productive cough. Denies wheezing. No hemoptysis. He does have dyspnea on exertion acno palpitations, no chest pain, no syncope Ciro nausea, vomiting, diarrhea, melena, hematochezia GUno urinary retention, no urinary incontinence, no dysuria, no hematuria Musculoskeletalno joint pain, no muscle tenderness Skinno bruising, no rashes, no pruritus Neurono isolated weakness, no paresthesia, no weakness Psychno depression, no anxiety Physical Exam 2 Physical Exam: General-alert and oriented x3, no fever, no chills HEENT-head atraumatic and normocephalic, pupils equal and reactive to light, extraocular muscles intact Neck-no lymphadenopathy or thyromegaly, trachea midline Chest-scattered bilateral rhonchi. No inspiratory rales. No wheezing. No dullness to percussion Cardiac-regular rate and rhythm, normal S1 and S2 Abdomen-normal bowel sounds, no hepatosplenomegaly Extremities-no cyanosis, clubbing, or edema Neuro-cranial nerves II through XII intact, motor and sensory function within normal limits, strength symmetrical, no focal deficits Psych-normal affect, normal mood Results & Data Results & Data Vital Signs (Past 12 Hours) Vital Signs Temp Pulse Pulse Resp BP Pulse Ox O2 Del Method 01/09/25 12:00 36.7 C 76 19 119/73 94 Nasal Cannula 01/09/25 10:13 Nasal Cannula 01/09/25 09:45 64 18 90 Nasal Cannula 01/09/25 07:52 36.8 C 82 19 125/76 91 Oxymask 01/09/25 07:52 69 01/09/25 05:04 67 17 90 Nasal Cannula 01/09/25 04:35 36.9 C 70 18 120/75 90 Nasal Cannula O2 Flow Rate 01/09/25 12:00 4.0 01/09/25 10:13 2 01/09/25 09:45 2 01/09/25 07:52 6.0 01/09/25 07:52 01/09/25 05:04 4 01/09/25 04:35 4 Laboratory Results 01/08/25 07:38 01/07/25 05:42 PG Care Time/CCT Total # of Minutes Spent Total Time Spent with Patient: Total time spent is greater than 50% in coordination of care (as documented) at patient's floor/unit and/or counseling patient: Coding Level of Care Code 65683 SUB INP/OBS CARE 3/50MIN Diagnoses Multifocal pneumonia J18.9 Influenza A J10.1 Acute respiratory failure with hypoxia J96.01 Immunosuppressed status D84.9
[2025-01-10 08:21] LABS: Basophils # (auto) 0.03 K/uL (0.00-0.20); Basophils % (auto) 0.3 %; Hematocrit (blood only) 35.4 % (42.0-52.0); Hemoglobin 12.1 g/dl (14.0-18.0); Immature Granulocytes # (auto) 0.23 K/uL (0.01-0.20); Immature Granulocytes % (auto) 2.1 %; Lymphocytes # (auto) 0.78 K/uL (1.20-3.40); Lymphocytes % (auto) 7.1 %; Mean Corpuscular Hemoglobin 30.6 pg (25.0-34.0); Mean Corpuscular Hgb Conc 34.2 g/dL (32.0-36.0); Mean Corpuscular Volume 89.4 fL (80.0-100.0); Mean Platelet Volume 9.2 fL (9.4-12.4); Monocytes # (auto) 0.34 K/uL (0.11-0.59); Monocytes % (auto) 3.1 %; Neutrophils # (auto) 9.59 K/uL (1.40-6.50); Neutrophils % (auto) 87.4 %; Platelet Count 380 K/uL (130-400); RDW Coefficient of Variation 14.5 % (11.5-14.5); RDW Standard Deviation 47.2 fL (36.4-46.3); Red Blood Count 3.96 M/uL (4.70-6.10); White Blood Count 10.97 K/ul (4.8-10.8)
[2025-01-10 08:44] LABS: BUN Creatinine Ratio 21.5 (10-20); Calcium 9.1 mg/dl (8.6-10.3); Potassium 3.7 mmol/L (3.5-5.1)
[2025-01-10 11:15] VITALS: PULSE 76; RESP 91; TEMP 97.5; O2SAT 93
--- NOTE | 2025-01-10 11:56 | Discharge Summary ---
Discharge Summary Date of Service January 10, 2025 Principal Dx & Hospital Course #1 = Principal Diagnosis (1) Multifocal pneumonia: Suspect bilateral viral pneumonia. Treated with parenteral steroid therapy while hospitalized. He will be discharged on an oral prednisone tapering dose (2) Influenza A: Treated while hospitalized with Tamiflu. Probable cause of suspected viral pneumonia. Supportive care (3) Acute respiratory failure with hypoxia: Supplemental oxygen per nasal cannula to maintain saturation greater than 90%. Two-step oxygen evaluation was completed todayJanuary 10. He will need home oxygen for little while but eventually this will be weaned off. (4) Immunosuppressed status: Due to lenalidomide therapy. He has a history of renal cell carcinoma and mult iple myeloma. 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 He presented on 01/06 for ongoing SOB/dyspnea and flu symptoms. Patient initially developed symptoms on Saturday 12/30. He then presented to the emergency department on Wednesday 01/03 and was diagnosed with influenza A; he was given an inhaler for his symptoms. During his PCP follow-up on 01/06, he was found to be hypoxic and sent to the emergency department. Patient is not on supplemental oxygen at baseline, but reports his home pulse ox today was reading 79 to 84%. His symptoms have not subsided in the past week, and include things like low-grade fever, SOB with exertion, and productive cough (green sputum production). Patient currently takes 10 mg p.o. daily of lenalidomide for history of multiple myeloma, but reports that he did not take it this morning. Follows with [facility] (Dr. Alegria) for oncology. The only medication that he took this morning was aspirin 81 mg. No recent change in medications. He denies any blood in his cough or pleuritic chest pain, but does note that taking deep breaths causes him to go into coughing fits. Patient denies smoking, tobacco use, recent alcohol use. In regard to his listed cephalosporin allergy, he reports he had a mild rash once; no prior history of anaphylaxis or throat closure with antibiotic use. Patient is hypertensive at 150/87 and tachycardic at 103 bpm at time of admission; SpO2 93% on 2L NC. ED course: Vancomycin 1250 mg IV Doxycycline 100 mg IV Albuterol 3 mL neb Solu-Medrol 125 mg IV Zosyn 4.5 g IV ROS: Patient endorses low-grade fever, chills, feeling off balance, headache, coughing spells, productive cough (green), COYLE, or diarrhea. Patient denies dizziness, lightheadedness, night-sweats, falls, chest pain, chest palpitations, pleuritic CP, hemoptysis, SOB at rest, abdominal pain, N/V, melena, burning with urination, or redness/swelling in the legs. Discharge Exam General-alert and oriented x3, no fever, no chills HEENT-head atraumatic and normocephalic, pupils equal and reactive to light, extraocular muscles intact Neck-no lymphadenopathy or thyromegaly, trachea midline Chest-scattered bilateral rhonchi. No inspiratory rales. No wheezing. No dullness to percussion Cardiac-regular rate and rhythm, normal S1 and S2 Abdomen-normal bowel sounds, no hepatosplenomegaly Extremities-no cyanosis, clubbing, or edema Neuro-cranial nerves II through XII intact, motor and sensory function within normal limits, strength symmetrical, no focal deficits Psych-normal affect, normal mood Discharge Plan Discharge Items Patient Disposition: Home - Self-Care Reason For Visit: MULTIFOCAL PNA Discharge Diagnosis: Suspected viral pneumonia, acute hypoxic respiratory failure, influenza A Activity: As commented below Activity Comment: Wear oxygen at all times until weaned off Non-emergency contact: Primary Care Provider Call non-emergency contact if: your symptoms worsen Follow-up/Referrals: Kirstin Gomez CRNP [Primary Care Provider] - Diet: Regular Addtl Attending Provider Instructions: Take prednisone in a tapering dose fashion as directed. A prescription has been sent to your pharmacy. Wear oxygen at all times as directed until it is weaned off Pending Studies at Discharge: No Stand-Alone Forms: My [employer], Smoking Cessation Medications and DC Order Prescriptions: New prednisone 10 mg tablet See Rx Instructions .ROUTE .COMPLEX Qty: 12 0RF Rx Instructions: 10 mg orally 3 times a day for 2 days, then 10 mg twice a day for 2 days, then 10 mg once a day for 2 days, then stop Continued alfuzosin 10 mg tablet extended release 24 hr 10 mg PO DAILY Qty: 90 3RF Rx Instructions: administer after the same meal each day cod liver oil oil 1 ea PO DAILY Patient Comments: 1 tsp PO DAILY; Rx Instructions: ONE TEASPOON DAILY cholecalciferol (vitamin D3) 50 mcg (2,000 unit) capsule 50 mcg PO DAILY aspirin 81 mg tablet,delayed release (DR/EC) 81 mg PO DAILY lenalidomide 10 mg capsule 10 mg PO DAILY Rx Instructions: swallow whole with glass of water; do not open, crush, chew , break, or dissolve hydrocortisone [Proctosol HC] 2.5 % cream with perineal applicator 1 applic MS DAILY PRN (Reason: hemorrhoids) Qty: 30 2RF dutasteride 0.5 mg capsule 0.5 mg PO DAILY Qty: 90 3RF magnesium mal-pot cit-taur-B6 27 mg PO DAILY Men's 50 Plus Daily Formula 400-20-370 mcg Tablet 1 tab PO DAILY vitamin Q08-fmyhb acid 0.5-1 mg Tablet 1 tab PO DAILY vitamin K2 40 mcg Tablet 0 mcg PO DAILY Discharge Orders: Discharge Order (Routine); Ordered 01/10/25 Ordered By: Jayden Boggs Admission Data Admit Date/Time: 01/06/25 16:55 Attending Provider: Jayden Boggs Admit Provider: Hernandez Graf Primary Care Provider: Kirstin Gomez Other Providers: Hernandez Graf Hospital Stay Data Consultations 01/06/25 16:16 ED Decision to Admit Stat Diagnostic Imagining Performed 01/06/25 14:55 CT angio chest PE protocol Stat Pending Results Patient Have Any Pending Studies at Discharge: No Discharge Instructions Given to Patient (Per Discharging Provider) Take prednisone in a tapering dose fashion as directed. A prescription has been sent to your pharmacy. Wear oxygen at all times as directed until it is weaned off Total Time Total Time Spent Total Time Spent (In Minutes): 45 minutes Coding Level of Care Code 61650 INP/OBS DISCH >30 MIN Diagnoses Multifocal pneumonia J18.9 Influenza A J10.1 Acute respiratory failure with hypoxia J96.01 Immunosuppressed status D84.9
[2025-01-10 12:09] VITALS: BP 124/75
== END 2025-01-10 16:20 | disposition home or self-care (01) | DRG 193 ==
LOC: ED 13:23 → SUATTDRO 16:55 → 2S 16:55